=== PATIENT | male | born 1960 | race Caucasian/White ===

== ENCOUNTER 2018-05-27 17:15 | Emergency (ER) | payer MEDICAID ==
[~2018-05-27] VITALS: Ht 182.9 cm; Wt 90.0 kg
[2018-05-27] MEDS ORDERED: diphenhydrAMINE 50 mg/ml inj IV ONE (17:50)
[2018-05-27] MEDS ORDERED: normal saline 1000ML IV soln IVB ONE ×2 (17:50)
[2018-05-27] MEDS ORDERED: LORazepam 2 mg/ml vial IV ONE (17:50)
[2018-05-27] MEDS ORDERED: proCHLORperazine 10 MG/2 ml inj IV ONE (17:50)
[2018-05-27] MEDS ORDERED: pantoprazole 40 MG vial IV ONE (17:50)
[2018-05-27 17:57] LABS: BASOPHILS # (AUTO) 0.1 X10'3 (0-0.2); BASOPHILS % (AUTO) 0.4 % (0-1); EOSINOPHILS # (AUTO) 0.2 X10'3 (0-0.9); EOSINOPHILS % (AUTO) 1.1 % (0-6); HEMATOCRIT 46.5 % (42.0-52.0); HEMOGLOBIN 15.9 g/dl (14.0-17.9); LYMPHOCYTES # (AUTO) 1.5 X10'3 (1.1-4.8); LYMPHOCYTES % (AUTO) 10.6 % (21-51); MEAN CORPUSCULAR HEMOGLOBIN 30.7 PG (27.0-31.0); MEAN CORPUSCULAR HGB CONC 34.2 % (33.0-36.5); MEAN CORPUSCULAR VOLUME 89.6 FL (78-98); MEAN PLATELET VOLUME 8.4 FL (7.4-10.4); MONOCYTES # (AUTO) 0.9 X10'3 (0-0.9); MONOCYTES % (AUTO) 6.6 % (2-12); NEUTROPHILS # (AUTO) 11.4 X10'3 (1.8-7.7); NEUTROPHILS % (AUTO) 81.3 % (42-75); PLATELET COUNT 278 X10'3 (140-440); RED BLOOD COUNT 5.19 X10'6 (4.70-6.10); RED CELL DISTRIBUTION WIDTH 12.8 % (11.5-14.5); WHITE BLOOD COUNT 14.1 X10'3 (4.5-11.0)
[2018-05-27 18:04] LABS: PARTIAL THROMBOPLASTIN TIME 25 SECONDS (22-32)
[2018-05-27 18:08] LABS: ALANINE AMINOTRANSFERASE 49 U/L (12-78); ALBUMIN 3.9 G/DL (3.4-5.0); ALBUMIN/GLOBULIN RATIO 1.1 (1.1-1.5); ALKALINE PHOSPHATASE 104 IU/L (46-116); ANION GAP 16 (8-16); ASPARTATE AMINO TRANSFERASE 22 U/L (10-37); BILIRUBIN,TOTAL 0.5 MG/DL (0.1-1.0); BLOOD UREA NITROGEN 19 MG/DL (7-18); BUN/CREATININE RATIO 12.8 (5.4-32.0); CALCIUM 9.7 MG/DL (8.5-10.1); CHLORIDE 101 MMOL/L (99-107); CREATININE 1.49 MG/DL (0.60-1.10); GLUCOSE 175 MG/DL (70-104); LIPASE 361 U/L (73-393); MAGNESIUM 1.6 MG/DL (1.5-2.4); POTASSIUM 3.5 MMOL/L (3.5-5.1); SODIUM 138 MMOL/L (135-145); TOTAL CARBON DIOXIDE 21.5 MMOL/L (24-32); TOTAL PROTEIN 7.5 G/DL (6.4-8.2); eGFR 49 ML/MIN
[2018-05-27] MEDS ORDERED: METO-292 PO (19:41)
[2018-05-27 20:24] VITALS: BP 152/86
== END 2018-05-27 20:29 | disposition home or self-care (01) ==
LOC: ER 17:17
DX: G43.A0 Cyclical vomiting, in migraine, not intractable (principal); R10.13 Epigastric pain; F12.10 Cannabis abuse, uncomplicated; I48.91 Unspecified atrial fibrillation; I10 Essential (primary) hypertension; Z88.5 Allergy status to narcotic agent
CPT/HCPCS: 36415; 71045; 80053; 83690; 83735; 84484; 85025; 85610; 85730; 93005; 96361; 96374; 96375; 99284; C9113; J0780; J1200; J2060; J7030

== ENCOUNTER 2018-06-30 11:52 | Emergency (ER) | payer MEDICAID ==
[~2018-06-30] VITALS: Ht 182.9 cm; Wt 90.5 kg
[~2018-06-30 11:52] MED LIST: METO-292 PO
[2018-06-30 12:52] LABS: BASOPHILS % (AUTO) 0.1 % (0-1); EOSINOPHILS # (AUTO) 0.2 X10'3 (0-0.9); EOSINOPHILS % (AUTO) 1.2 % (0-6); HEMATOCRIT 49.8 % (42.0-52.0); HEMOGLOBIN 17.2 g/dl (14.0-17.9); LYMPHOCYTES # (AUTO) 0.9 X10'3 (1.1-4.8); LYMPHOCYTES % (AUTO) 5.1 % (21-51); MEAN CORPUSCULAR HEMOGLOBIN 30.9 PG (27.0-31.0); MEAN CORPUSCULAR HGB CONC 34.5 % (33.0-36.5); MEAN CORPUSCULAR VOLUME 89.6 FL (78-98); MEAN PLATELET VOLUME 7.9 FL (7.4-10.4); MONOCYTES # (AUTO) 0.6 X10'3 (0-0.9); MONOCYTES % (AUTO) 3.4 % (2-12); NEUTROPHILS # (AUTO) 16.7 X10'3 (1.8-7.7); NEUTROPHILS % (AUTO) 90.2 % (42-75); PLATELET COUNT 273 X10'3 (140-440); RED BLOOD COUNT 5.56 X10'6 (4.70-6.10); RED CELL DISTRIBUTION WIDTH 12.6 % (11.5-14.5); WHITE BLOOD COUNT 18.5 X10'3 (4.5-11.0)
[2018-06-30 13:08] LABS: ALANINE AMINOTRANSFERASE 62 U/L (12-78); ALBUMIN 4.1 G/DL (3.4-5.0); ALBUMIN/GLOBULIN RATIO 1.1 (1.1-1.5); ALKALINE PHOSPHATASE 121 IU/L (46-116); AMYLASE 52 U/L (25-115); ANION GAP 17 (8-16); ASPARTATE AMINO TRANSFERASE 26 U/L (10-37); BILIRUBIN,TOTAL 0.6 MG/DL (0.1-1.0); BLOOD UREA NITROGEN 14 MG/DL (7-18); BUN/CREATININE RATIO 12.2 (5.4-32.0); CALCIUM 9.1 MG/DL (8.5-10.1); CHLORIDE 102 MMOL/L (99-107); CREATININE 1.15 MG/DL (0.60-1.10); GLUCOSE 134 MG/DL (70-104); LIPASE 116 U/L (73-393); POTASSIUM 3.8 MMOL/L (3.5-5.1); SODIUM 139 MMOL/L (135-145); TOTAL CARBON DIOXIDE 19.6 MMOL/L (24-32); TOTAL PROTEIN 7.8 G/DL (6.4-8.2); eGFR 66 ML/MIN
[2018-06-30] MEDS ORDERED: normal saline 1000ML IV soln IVB ONE (13:40)
[2018-06-30] MEDS ORDERED: diphenhydrAMINE 50 mg/ml inj IV ONE (13:40)
[2018-06-30] MEDS ORDERED: ondansetron/PF 4mg/2ml inj IV ONE (13:40)
[2018-06-30] MEDS ORDERED: haloperidol lactate 5mg/ml inj IM ONE (13:40)
[2018-06-30] MEDS ORDERED: LORazepam 2 mg/ml vial IV ONE (14:35)
--- NOTE | 2018-06-30 14:50 | NUR ---
PT REPORTS MORPHINE MORE EFFECTIVE FOR N/V SX THAN ATIVAN AND REQUESTING "HALF" DOSE OF MORPHINE INSTEAD OF ORDERED ATIVAN. REPORTED REQUEST TO PROVIDER Thomas GOLDEN AND REPORTED PT REMAINS HYPERTENSIVE AND TACHYCARDIC. RECEIVED VO FOR MORPHINE 2 MG IV, DC ATIVAN AND TO DC CT SCAN OF ABD.
[2018-06-30] MEDS ORDERED: morphine 4 MG/ML inj SYRINge IV ONE (14:55)
[2018-06-30 16:15] VITALS: BP 140/92
== END 2018-06-30 16:17 | disposition home or self-care (01) ==
LOC: ER 11:53
DX: G43.A0 Cyclical vomiting, in migraine, not intractable (principal); I48.91 Unspecified atrial fibrillation; I10 Essential (primary) hypertension; E05.00 Thyrotoxicosis with diffuse goiter without thyrotoxic crisis or storm; F12.90 Cannabis use, unspecified, uncomplicated; Z88.6 Allergy status to analgesic agent
CPT/HCPCS: 36415; 80053; 82150; 83605; 83690; 84484; 85025; 93005; 96361; 96372; 96374; 96375; 99284; J1200; J1630; J2060; J2270; J2405; J7030